=== PATIENT | female | born 1995 | race Hispanic/Latino ===

== ENCOUNTER 2018-07-22 19:19 | Emergency (ER) | payer OTHER ==
[2018-07-22 21:07] LABS: RAPID GROUP A STREP NEGATIVE (NEGATIVE)
== END 2018-07-22 21:27 | disposition home or self-care (01) ==
LOC: EDH 19:19
DX: O99.511 Diseases of the respiratory system complicating pregnancy, first trimester (principal); J10.1 Influenza due to other identified influenza virus with other respiratory manifestations; Z3A.12 12 weeks gestation of pregnancy
CPT/HCPCS: 87804; 87880